=== PATIENT | male | born 1970 | race African-American/Black ===

== ENCOUNTER 2018-10-28 11:24 | Inpatient (IN) ==
[2018-10-28] MEDS ORDERED: ONDANSETRON INJ 2 MG/ML 2 ML VIAL IV STA (11:54)
[2018-10-28] MEDS ORDERED: MoRPHine SULFATE 4 MG/ML 1 ML CARP\\VIAL IV STA (11:54)
--- NOTE | 2018-10-28 11:54 | Emergency Department Note ---
History of Present Illness General Chief complaint: Abdominal Pain Stated complaint: ACUTE CHOLECYSTITIS Time Seen by Provider: 10/28/18 11:48 History of Present Illness Maximum Pain Intensity: 8 This is a 48-year-old male that presents to the emergency department via correctional manager escort from [facility] where the patient is currently incarcerated with complaints of "acute cholecystitis". The patient notes that Sunday night into Sunday morning he developed abrupt onset of right upper quadrant abdominal pain that he notes is an 8/10. There is associated fever and chills. There was an ultrasound performed at the facility which showed possible change in the gallbladder therefore prompting his arrival here today. Patient notes a history of hypertension and on medication for this but no blood thinners. He has been n.p.o. since yesterday. He notes no abdominal history as in the past. He does have a history of abscess drainage on the chest and thyroid. Home Medications Home Medications Medication Instructions Recorded Confirmed Type amlodipine 10 mg PO DAILY 10/28/18 10/28/18 History aspirin [Aspir-81] 81 mg PO DAILY 10/28/18 10/28/18 History Allergies Allergy/AdvReac Type Severity Reaction Status Date / Time No Known Allergies Allergy Unverified 10/28/18 12:47 Past Med/Surg History Medical History History of hypertension Surgical History History of thyroid surgery Social History current occupation: Incarcerated Smoking Status: Former smoker Review of Systems A total of 10 systems reviewed and were otherwise negative Physical Exam Vital Signs Vital Signs - 24 hr 10/28/18 11:38 10/28/18 13:34 Temperature 36.7 C Temperature Source Oral Sepsis Recent Fever Within 48 Hours No Sepsis New/Unexplained Change in Mental Status No Sepsis Action Taken by Nursing No Action Required Pulse Rate 87 Pulse Rate [Finger] 83 Respiratory Rate 16 18 Respiratory Effort / Characteristics Non-Labored Respiratory Depth Normal Blood Pressure 166/112 H Blood Pressure [Right Arm] 154/95 H Blood Pressure Mean 130 Blood Pressure Mean [Right Arm] 114 Pulse Oximetry 98 98 Oxygen Delivery Method Room Air Room Air VITAL SIGNS - Vital signs and nursing notes were reviewed. Hypertensive, otherwise stable. GENERAL -48-year-old male appearing his stated age who is in no acute distress but appears to be in pain. Communicates well with provider and answers questions appropriately. SKIN - Without rashes. No meningeal or petechial rash. HEAD - NC/AT. EYES - PERRL with EOMI bilaterally. Sclera anicteric. Palpebral conjunctiva pink and moist with no injection noted. EARS - No deformities of external structures noted on gross examination bilaterally. NOSE - Midline and without cyanosis. No epistaxis or purulent drainage noted. MOUTH/OROPHARYNX - Without perioral cyanosis. NECK - Neck with FROM. Supple to palpation. No lymphadenopathy noted. No nuchal rigidity. LUNGS - Chest wall symmetric without accessory muscle use, intercostals retractions, or central cyanosis. Normal vesicular breath sounds CTA B/L. No wheezes, rales, or rhonchi appreciated. CARDIAC - RRR with S1/S2. No murmur, rubs, or gallops appreciated. ABDOMEN - Abdominal contour normal without pulsations or visible masses. BS normoactive all four quadrants. There is right upper quadrant abdominal tenderness to palpation. No palpable masses, hepatosplenomegaly, or ascites noted. EXTREMITIES - No clubbing or peripheral cyanosis. No pretibial edema present. +5/5 strength noted in UE/LE bilaterally. NEUROLOGIC - Cranial nerves II through XII grossly intact. PSYCH - A&Ox3 and cooperates fully with examiner. Pt is very pleasant and interacts well with examiner. Course Administered Medications Discontinued Medications Sodium Chloride (Nss 1000ml) 1,000 mls @ 999 mls/hr IV .Q1H1M MONAE Stop: 10/28/18 13:00 Last Infusion: 10/28/18 13:12 Dose: 0 mls/hr Documented by: [id number] Admin: 10/28/18 12:11 Dose: 999 mls/hr Documented by: [id number] Morphine Sulfate (Morphine Sulfate) 4 mg IV NOW STA Stop: 10/28/18 11:55 Last Admin: 10/28/18 12:11 Dose: 4 mg Documented by: [id number] Ondansetron HCl (Zofran) 4 mg IV NOW STA Stop: 10/28/18 11:55 Last Admin: 10/28/18 12:11 Dose: 4 mg Documented by: [id number] Medical Decision Making Laboratory Data Result diagrams: 10/28/18 12:07 10/28/18 12:07 Lab Results 10/28/18 10/28/18 Range/Units 12:07 12:07 WBC 14.33 H (4.8-10.8) K/uL RBC 4.88 (4.7-6.1) M/uL Hgb 15.7 (14.0-18.0) g/dL Hct 43.5 (42-52) % MCV 89.1 (80-100) fL MCH 32.2 (25-34) pg MCHC 36.1 H (32-36) g/dL RDW Std Deviation 44.8 (36.4-46.3) fL RDW Coeff of Maria Isabel 13.7 (11.5-14.5) % Plt Count 201 (130-400) K/uL MPV 9.1 (7.4-10.4) fL Immature Gran % (Auto) 0.3 % Neut % (Auto) 81.1 % Lymph % (Auto) 8.2 % [place] % (Auto) 10.2 % Eos % (Auto) 0.1 % Baso % (Auto) 0.1 % Immature Gran # (Auto) 0.05 H (0.00-0.02) K/uL Neut # (Auto) 11.61 H (1.4-6.5) K/uL Lymph # (Auto) 1.18 L (1.2-3.4) K/uL [place] # (Auto) 1.46 H (0.11-0.59) K/uL Eos # (Auto) 0.02 (0-0.5) K/uL Baso # (Auto) 0.01 (0-0.2) K/uL Sodium 135 L (136-145) mmol/L Potassium 3.9 (3.5-5.1) mmol/L Chloride 99 (98-107) mmol/L Carbon Dioxide 27 (21-32) mmol/L Anion Gap 9.0 (3-11) BUN 11 (7-18) mg/dl Creatinine 1.05 (0.6-1.4) mg/dl Est Cr Clr Drug Dosing 92.7 ml/min Est GFR ( Amer) 96.1 Est GFR (Non-Af Amer) 83.0 BUN/Creatinine Ratio 10.6 (10-20) Glucose 113 H (70-99) mg/dl Calcium 9.4 (8.5-10.1) mg/dl Magnesium 2.5 H (1.8-2.4) mg/dl Total Bilirubin 1.3 H (0.2-1) mg/dl AST 24 (15-37) U/L ALT 32 (12-78) U/L Alkaline Phosphatase 75 (45-117) U/L Total Protein 9.0 H (6.4-8.2) gm/dl Albumin 4.0 (3.4-5.0) gm/dl Globulin 5.0 H (2.5-4.0) gm/dl Albumin/Globulin Ratio 0.8 L (0.9-2) Lipase 53 L (73-393) U/L Imaging Data Radiologist's Impression: US gallbladder CLINICAL HISTORY: 48 years-old Male presenting with RUQ abd pain. TECHNIQUE: Real-time grayscale and limited color Doppler ultrasound imaging of the abdomen limited to the right upper quadrant was performed. COMPARISON: None. FINDINGS: Pancreas: Visualized portions of the pancreatic head and body normal. Liver: Normal echogenicity and echotexture. The liver measures 14.7 cm in maximal sagittal dimension. No sonographic evidence of hepatic mass. Main portal vein patent with normal directional flow. Biliary: No intrahepatic biliary ductal dilatation. Common bile duct measures up to 6 mm in diameter. Gallbladder: Cholelithiasis in the mildly distended gallbladder. Significant gallbladder wall thickening and pericholecystic fluid. Sonographic Sawant's sign positive. Right kidney: Normal in appearance without evidence of hydronephrosis. Ascites: None. Other: None. IMPRESSION: 1. Findings highly suspicious for acute calculus cholecystitis. Surgical consultation is warranted. 2. Top normal extrahepatic bile duct size raises concern for choledocholithiasis though this is not directly visualized on this exam. The report will be called/faxed according to standard departmental protocol. Electronically signed by: Olivier Irwin M.D. 10/28/2018 12:55 PM MDM Narrative Patient was seen and evaluated as above in room B2. Review was performed of nursing notes and vital signs. After obtaining a thorough history and physical examination the above work up was performed. He presents to us today from the facility where he is incarcerated with complaints of right upper quadrant abdominal pain. This is highly suspicious for a gallbladder etiology. IV access was established. Labs were drawn. He was medicated with IV morphine, Zofran and fluids. CBC reveals leukocytosis of 14.33 and no anemia. There is bilirubin elevation at 1.3. LFTs are normal. Magnesium high at 2.5. Urinalysis pending. Lipase does not reveal evidence of pancreatitis. Ultrasound was obtained which reveals suspicion for acute calculus cholecystitis with possible choledocholithiasis. I then talked to the attending physician as well as the on-call surgical team, and spoke with Reji Gamez PA-C. Patient will likely be taken to the operative suite for further evaluation and management. Please refer to further documentation regarding his stay. Case was discussed with the attending physician. GCS: 15 In the evaluation and treatment of this patient, the following differential diagnoses were considered: ASC, IL, Pneumonia, GERD, Cholecystitis, Ascending Cholangitis, Cholydocholithiasis, Bowel Obstruction, PE, Amongst Others. Impression & Plan Acute cholecystitis Discharge Plan Visit Data Chief Complaint: Abdominal Pain Stated Complaint: ACUTE CHOLECYSTITIS ED Provider: Albert Cárdenas ED Midlevel Provider: Troy Dallas Discharge Problem: Acute cholecystitis Patient Disposition: Being Evaluated by Surgeon Condition: Good Forms Stand Alone Forms: Call Back [facility] Pres[facility] Prescriptions: No Action aspirin [Aspir-81] 81 mg Tablet,Delayed Release (Dr/Ec) 81 mg PO DAILY RF: 0 amlodipine 10 mg Tablet 10 mg PO DAILY RF: 0 Referrals Referrals: Magi BARR [Primary Care Provider] -
[2018-10-28] MEDS ORDERED: SODIUM CHLORIDE 0.9% 1000ML 1,000 ML IV SCH (12:00)
[2018-10-28 12:16] LABS: Basophils # (auto) 0.01 K/uL (0-0.2); Basophils % (auto) 0.1 %; Eosinophils # (auto) 0.02 K/uL (0-0.5); Eosinophils % (auto) 0.1 %; Hematocrit (blood only) 43.5 % (42-52); Hemoglobin 15.7 g/dL (14.0-18.0); Immature Granulocytes # (auto) 0.05 K/uL (0.00-0.02); Immature Granulocytes % (auto) 0.3 %; Lymphocytes # (auto) 1.18 K/uL (1.2-3.4); Lymphocytes % (auto) 8.2 %; Mean Corpuscular Hgb Conc 36.1 g/dL (32-36); Mean Corpuscular Volume 89.1 fL (80-100); Mean Platelet Volume 9.1 fL (7.4-10.4); Monocytes # (auto) 1.46 K/uL (0.11-0.59); Monocytes % (auto) 10.2 %; Neutrophils # (auto) 11.61 K/uL (1.4-6.5); Neutrophils % (auto) 81.1 %; Platelet Count 201 K/uL (130-400); RDW Coefficient of Variation 13.7 % (11.5-14.5); RDW Standard Deviation 44.8 fL (36.4-46.3); Red Blood Count 4.88 M/uL (4.7-6.1); White Blood Count 14.33 K/uL (4.8-10.8)
[2018-10-28 12:41] LABS: BUN Creatinine Ratio 10.6 (10-20); Calcium 9.4 mg/dl (8.5-10.1); Creatinine Clr Calc Pharmacy 92.7 ml/min; Est GFR (African American) 96.1; Magnesium 2.5 mg/dl (1.8-2.4); Potassium 3.9 mmol/L (3.5-5.1)
[2018-10-28 12:43] LABS: Albumin Globulin Ratio 0.8 (0.9-2); Bilirubin,Total 1.3 mg/dl (0.2-1)
--- NOTE | 2018-10-28 12:56 | Ultrasound Report ---
US gallbladder CLINICAL HISTORY: 48 years-old Male presenting with RUQ abd pain. TECHNIQUE: Real-time grayscale and limited color Doppler ultrasound imaging of the abdomen limited to the right upper quadrant was performed. COMPARISON: None. FINDINGS: Pancreas: Visualized portions of the pancreatic head and body normal. Liver: Normal echogenicity and echotexture. The liver measures 14.7 cm in maximal sagittal dimension. No sonographic evidence of hepatic mass. Main portal vein patent with normal directional flow. Biliary: No intrahepatic biliary ductal dilatation. Common bile duct measures up to 6 mm in diameter. Gallbladder: Cholelithiasis in the mildly distended gallbladder. Significant gallbladder wall thicken ing and pericholecystic fluid. Sonographic Sawant's sign positive. Right kidney: Normal in appearance without evidence of hydronephrosis. Ascites: None. Other: None. IMPRESSION: 1. Findings highly suspicious for acute calculus cholecystitis. Surgical consultation is warranted. 2. Top normal extrahepatic bile duct size raises concern for choledocholithiasis though this is not directly visualized on this exam. The report will be called/faxed according to standard departmental protocol. Electronically signed by: Olivier Irwin M.D. 10/28/2018 12:55 PM
[2018-10-28] MEDS ORDERED: LACTATED RINGER'S 1,000 ML IV SCH (13:30)
[2018-10-28] MEDS ORDERED: SUCCINYLCHOLINE CHLORIDE 20 MG/ML 10 ML VIAL ONE (13:32)
[2018-10-28] MEDS ORDERED: NEOSTIGMINE METHYLSULFATE 5 MG/5 ML SYR ONE (13:32)
[2018-10-28] MEDS ORDERED: MIDAZOLAM HCL 1 MG/ML 2ML VIAL ONE (13:32)
[2018-10-28] MEDS ORDERED: ONDANSETRON INJ 2 MG/ML 2 ML VIAL ONE (13:32)
[2018-10-28] MEDS ORDERED: DEXAMETHASONE SOD INJ 4 MG/ML VIAL ONE ×2 (13:32→14:58)
[2018-10-28] MEDS ORDERED: ROCURONIUM BROMIDE 10 MG/ML 5 ML VIAL ONE (13:32)
[2018-10-28] MEDS ORDERED: LIDOCAINE HCL 2% 2 ML VIAL/AMP(20MG/ML) INFIL ONE (13:32)
[2018-10-28] MEDS ORDERED: fentaNYL citrate 100 MCG/2 ML VIAL ONE ×3 (13:32→15:20)
[2018-10-28] MEDS ORDERED: GLYCOPYRROLATE 0.2 MG/ML VIAL ONE (13:32)
[2018-10-28] MEDS ORDERED: PROPOFOL IV EMULSION 10 MG/ML 20 ML VIAL IV ONE ×2 (13:32→15:34)
--- NOTE | 2018-10-28 13:39 | History & Physical Report ---
Date of Service October 28, 2018 Assessment & Plan (1) Acute cholecystitis: Will plan for laparoscopic cholecystectomy with cholangiogram given mildly elevated bilirubin and mild intrahepatic bile duct dilation. Procedure was discussed, Dr. Park will be obtaining consent. History of Present Illness Primary Care Provider: CORTNEY Sow 48 y/o male with right sided abdominal pain that began 3 days ago after dinner. Had N/V that has since subsided but pain persists. No previous RUQ pain or food intolerance. No previous abdominal surgery. Nothing to eat since yesterday. Allergies Allergy/AdvReac Type Severity Reaction Status Date / Time No Known Allergies Allergy Unverified 10/28/18 12:47 Home Medications Home Medications Medication Instructions Recorded Confirmed Type amlodipine 10 mg PO DAILY 10/28/18 10/28/18 History aspirin [Aspir-81] 81 mg PO DAILY 10/28/18 10/28/18 History Past Med/Surg History Medical History History of hypertension Surgical History History of thyroid surgery Social History current occupation: Incarcerated Smoking Status: Former smoker Review of Systems Constitutional: + anorexia; no fever and no chills Gastrointestinal: + abdominal pain, + nausea and + vomiting Physical Exam Constitutional: WD/WN, vitals as above no acute distress Eyes: + anicteric sclerae Respiratory: normal respiratory effort, lungs clear to auscultation Cardiovascular: RRR, no murmur, no edema Gastrointestinal (Abdomen): Inspection/Auscultation: abdomen not distended Percussion/Palpation: + abdomen tender (RUQ) and + guarding Results & Data Vital Signs (Past 12 Hours) Vital Signs Temp Pulse Resp BP Pulse Ox 10/28/18 11:38 36.7 C 87 16 166/112 H 98
[2018-10-28 13:52] LABS: Appearance Urine Clear (Clear); Bacteria Urine Automated Negative (Negative); Bilirubin Urine Negative (Negative); Blood Urine 2+ (Negative); Color Urine Orange; Epithelial Cell Urine Auto 20-30 /lpf (0-5); Glucose Urine UA Negative (Negative); Ketones Urine Trace (Negative); Leukocyte Esterase Urine Trace (Negative); Nitrite Urine Negative (Negative); Protein Urine 1+ (Negative); RBC Urine Automated 0-4 /hpf (0-4); Specific Gravity Urine 1.029 (1.000-1.030); Urobilinogen Urine Negative (Negative)
[2018-10-28] MEDS ORDERED: ePHEDrine sulfate 50 MG/ML AMP IV PRN (13:55)
[2018-10-28] MEDS ORDERED: ATROPINE SULFATE 0.1 MG/ML 10ML SYR IV PRN (13:55)
[2018-10-28] MEDS ORDERED: ONDANSETRON INJ 2 MG/ML 2 ML VIAL IV PRN ×2 (13:55→17:10)
[2018-10-28] MEDS ORDERED: fentaNYL citrate 100 MCG/2 ML VIAL IV PRN (13:55)
--- NOTE | 2018-10-28 13:55 | History & Physical Bridge Note ---
Date of Service October 28, 2018 History & Physical Bridge Note I have examined the patient, reviewed the History & Physical and in the interval since the performance of the History & Physical I have noted the following changes of clinical significance: no changes noted exquisite tenderness and rebound RUQ plan agus lyn possible open r and c explained to pt all questions answered
[2018-10-28] MEDS ORDERED: LIDOCAINE/EPINEPHRINE 1% 20 ML VIAL ONE (14:04)
[2018-10-28] MEDS ORDERED: CONRAY 60% 50 ML VIAL ONE (14:04)
--- NOTE | 2018-10-28 14:13 | Anesthesiology Consultation ---
Date of Service October 28, 2018 Assessment & Plan (1) Encounter for pre-operative examination: Chart Review Chart Review: Acceptable Risk for Surgery Consults Requested none ASA ASA2 Proposed Anesthesia Anesthesia Type: General Risk / Benefits Reviewed With: PT / POA / Parent / Guardian, Accepts Plan and Informed Consent Obtained History Surgery Operation Date: 10/28/18 08:10 Proposed Procedures p Laparoscopic Cholecystectomy with Cholangiogram - Fabricio Park MD Height/Weight Height: 5 ft 8 in Weight: 90 kg Allergies Allergy/AdvReac Type Severity Reaction Status Date / Time No Known Allergies Allergy Unverified 10/28/18 12:47 Medications Home Medications Medication Instructions Recorded Confirmed Last Taken amlodipine 10 mg PO DAILY 10/28/18 10/28/18 Unknown aspirin [Aspir-81] 81 mg PO DAILY 10/28/18 10/28/18 Unknown Past Medical History Medical History History of hypertension Exercise / Class Metabolic Activity II 4-5 Yardwork/Stairs/Walk up hill Past Surgical History Surgical History History of thyroid surgery Past Anesthesia History No Hx of Anesthesia Complications and No Family Hx of Anesthesia Complications History of PONV No Hx of PONV and No Hx of Motion Sickness Social History Smoking Status: Former smoker Physical Exam Vital Signs Last Vital Signs Temp 98.1 F 10/28/18 11:38 Pulse 83 10/28/18 13:34 Resp 18 10/28/18 13:34 BP 154/95 H 10/28/18 13:34 Pulse Ox 98 10/28/18 13:34 ENMT Mouth: + poor dentition Thyromental Distance: > or= 3.5 Finger Breadths Mallampati Class: II Neck normal visual inspection Respiratory normal respiratory effort Auscultation: lungs clear to auscultation bilaterally Cardiovascular Rate/Rhythm: regular rate and regular rhythm Testing Laboratory Results 10/28/18 12:07 10/28/18 12:07 Urine Color [place] 10/28/18 13:15 Urine Appearance Clear (Clear) 10/28/18 13:15 Urine pH 5.0 (4.5-7.5) 10/28/18 13:15 Ur Specific [place] 1.029 (1.000-1.030) 10/28/18 13:15 Urine Protein 1+ (Negative) H 10/28/18 13:15 Urine Glucose (UA) Negative (Negative) 10/28/18 13:15 Urine Ketones Trace (Negative) H 10/28/18 13:15 Urine Nitrite Negative (Negative) 10/28/18 13:15 Ur Leukocyte Esterase Trace (Negative) H 10/28/18 13:15 Urine WBC (Auto) 10-30 /hpf (0-5) H 10/28/18 13:15 Urine RBC (Auto) 0-4 /hpf (0-4) 10/28/18 13:15 U Hyaline Cast (Auto) 10-30 /lpf (0-5) H 10/28/18 13:15 U Epithel Cells (Auto) 20-30 /lpf (0-5) H 10/28/18 13:15 Urine Bacteria (Auto) Negative (Negative) 10/28/18 13:15
[2018-10-28] MEDS ORDERED: cefOXitin 2,000 MG/60 ML BAG IV STA (15:00)
[2018-10-28] MEDS ORDERED: ESMOLOL HCL INJ 10 MG/ML 10ML VIAL IV ONE (15:24)
--- NOTE | 2018-10-28 15:32 | Fluoroscopy Report ---
FL cholangiogram OR HISTORY: 48 years-old Male LAP CHARAN cholecystectomy. COMPARISON: Right upper quadrant abdominal ultrasound of same day TECHNIQUE: 2 spot fluoroscopic images of the abdominal right upper quadrant were obtained utilizing 4 .7 seconds fluoroscopy time FINDINGS: Cholecystectomy. Cannulation of the cystic duct with contrast opacification. There are at least 2 sma ll filling defects noted about the mid common bile duct which may reflect choledocholithiasis versus air bubbles. No significant biliary ductal dilation. Normal contrast spilling into the duodenum. No e xtraluminal contrast extravasation identified. Enteric tube noted. IMPRESSION: Fluoroscopic assistance as above. Please see operative report for further details. The above report was generated using voice recognition software. It may contain grammatical, syntax o r spelling errors. Electronically signed by: Matt Lala M.D. 10/28/2018 3:31 PM
--- NOTE | 2018-10-28 15:46 | Post Operative Brief Note ---
Immediate Post Op Note v1 Date of Surgery October 28, 2018 Pre & Post Diagnosis Operation Date: 10/28/18 08:10 Pre-Op Diagnosis: ACUTE CHOLECYSTITIS Post-Op Diagnosis: ACUTE CHOLECYSTITIS Procedure Operation Date: 10/28/18 08:10 Actual Procedures p Laparoscopic Cholecystectomy with Cholangiogram(Not Applicable) - Fabricio Park MD Surgeon Fabricio Park MD Tapper Operator B Franco HALL Estimated Blood Loss 20 Findings Consistent with Post-Op Diagnosis Drains Gera Drain (19 Fr round)
--- NOTE | 2018-10-28 15:58 | Operative Report ---
Post Operative Report Pre & Post Diagnosis Operation Date: 10/28/18 08:10 Pre-Op Diagnosis: ACUTE CHOLECYSTITIS Post-Op Diagnosis: ACUTE CHOLECYSTITIS Procedure Operation Date: 10/28/18 08:10 Actual Procedures p Laparoscopic Cholecystectomy with Cholangiogram(Not Applicable) - Fabricio Park MD The patient was brought into the operating theater supine position general endotracheal anesthesia systemic antibiotics given abdomen prepped with Betadine solution properly draped timeout was had patient identified this point small incision was made supraumbilically sufficient to place a Veress needle followed by CO2 followed by 5 mm trocar point of entry no injury identified she had some preperitoneal insufflation this point I direct visualization looked at the right upper quadrant the omentum appeared to be walling off the gallbladder 11 mm epigastric two 5 mm subcostal ports were placed with preemptive local analgesic 1 Xylocaine with epi the omentum was freed off the acutely inflamed gallbladder we elevated the gallbladder with the lateral grasper and used an aspirating needle to deflate the gallbladder thick bowel was appreciated once a clearly deflated we were able to grasp it really thick-walled gallbladder most of her dissection was done bluntly significant edema was appreciated all the way towards the neck of the gallbladder we identified 2 structures consistent inferiorly with a cystic duct which we clipped proximally at its takeoff small opening the cystic duct was made #4 urethral catheter transverse to the abdominal wall and a 14 Angiocath was positioned in the cystic duct x-ray revealed 2 defects in the common bile duct well-rounded at this point I was not sure if it was air bubbles or stones we placed the patient in reverse Trende lenburg position injected again the filling defects did not move at all a suspicion that these more likely were stones at this point the Cholangiocath was removed cystic duct was secured with 210 mm clips although the cystic duct itself was not most 2 mm or so in diameter the artery some identified doubly clipped proximally once distally and the gallbladder was freed from the liver mostly by blunt dissection due to significant edema some of the posterior peritoneum was cauterized as had minor oozing along the once the gallbladder was removed completely from the liver placed in Endopouch and taken out intact through the epigastric port the gallbladder was falling apart acutely inflamed and I am sure area of necrosis significant different diameter stones were identified cultures the gallbladder were taken subhepatic suprahepatic area was suctioned out copiously there was no active bleeding just the minor oozing from the acutely inflamed residual posterior peritoneum we placed the camera right subcostal port to visualize her initial entry no adhesions the anterior abdominal wall in the umbilical area this point I elected to drain the subhepatic area with a 19 Gera drain which came out lateral port site sutured to skin edge with 2-[address] subhepatically individual trochars were taken under direct visualization the epigastric trocar site was closed with a [id number] of 0 Vicryl the other ones 4-0 Monocryl Steri-Strips applied procedure tolerated well estimated blood loss 20 cc patient taken recovery room in good position addendumB Franco HALL was present throughout the procedure after retraction camera work and wound closure Surgeon Fabricio Park MD Loader Demolder B Franco HALL Estimated Blood Loss 20 Findings Consistent with Post-Op Diagnosis Specimens gallbladder and contents Description of Procedure merda I attest to the content of the Intraoperative Record and any orders documented therein. Any exceptions are noted below.
--- NOTE | 2018-10-28 16:32 | Gastrointestinal Consultation ---
Date of Consultation October 28, 2018 Assessment & Plan (1) Choledocholithiasis: Patient with evident choledocholithiasis on intraoperative cholangiogram. Plan for ERCP, likely Sunday at 130. Continue IV antibiotics We will see tomorrow to ensure there is no evidence of cholangitis. We will check LFTs tomorrow morning. Diet per surgery. History of Present Illness Attending Physician: Fabricio Park MD History of Present Illness This a 48-year-old who presented to the ER with sided shoulder pain epigastric and right upper quadrant abdominal pain. Right upper quadrant ultrasound was obtained and was suspicious for acute acalculous cholecystitis. He was then taken to the operating room today at which time he had an uncomplicated cholecystectomy, and underwent a routine intraoperative cholangiogram. On the intraoperative cholangiogram the common bile duct was evident to small stones and a normal size duct. Bile duct is 1.3, AST ALT and alkaline phosphatase are all normal. I interviewed him in the PACU, and he states that he feels better already, he has no nausea vomiting. Allergies Allergy/AdvReac Type Severity Reaction Status Date / Time No Known Allergies Allergy Unverified 10/28/18 12:47 Home Medications Home Medications Medication Instructions Recorded Confirmed Type amlodipine 10 mg PO DAILY 10/28/18 10/28/18 History aspirin [Aspir-81] 81 mg PO DAILY 10/28/18 10/28/18 History Patient History Medical History History of hypertension Surgical History History of thyroid surgery Social History current occupation: Incarcerated Smoking Status: Former smoker Review of Systems Review of Systems: All systems reviewed & are unremarkable except as noted in HPI & below Physical Exam Constitutional: WD/WN, vitals as above Cardiovascular: RRR, no murmur, no edema Gastrointestinal (Abdomen): normal bowel sounds, soft, nontender, no hepatos plenomegaly Results & Data Vital Signs (Past 12 Hours) Vital Signs Temp Pulse Pulse Pulse Resp BP BP 10/28/18 16:10 36.7 C 102 H 18 154/77 H 10/28/18 14:17 37.5 C 94 H 18 10/28/18 13:34 83 18 10/28/18 11:38 36.7 C 87 16 166/112 H BP Pulse Ox 10/28/18 16:10 100 10/28/18 14:17 156/96 H 95 10/28/18 13:34 154/95 H 98 10/28/18 11:38 98
[2018-10-28] MEDS ORDERED: PIPERACILL/TAZOBAC CONSULT ACTIVE PRN (17:10)
[2018-10-28] MEDS ORDERED: MoRPHine SULFATE 4 MG/ML 1 ML CARP\\VIAL IV PRN (17:10)
[2018-10-28] MEDS ORDERED: OXYCODONE/ACETAMINOPHEN 5mg/325mg TAB PO PRN (17:10)
--- NOTE | 2018-10-28 17:15 | Anesthesiology Progress Note ---
Date of Service October 28, 2018 Anesthesia Post Procedure Vital Signs Vital Signs: Temp Pulse Pulse Pulse Resp BP BP 10/28/18 16:45 89 16 140/76 10/28/18 16:40 95 H 23 128/84 10/28/18 16:35 77 14 129/81 10/28/18 16:30 74 14 119/83 10/28/18 16:25 77 14 137/80 10/28/18 16:23 75 13 136/83 10/28/18 16:21 88 16 159/104 H 10/28/18 16:20 90 16 10/28/18 16:15 82 12 134/102 H 10/28/18 16:12 85 14 10/28/18 16:10 36.7 C 101 H 102 H 17 154/77 H 154/77 H 10/28/18 14:17 37.5 C 94 H 18 10/28/18 13:34 83 18 10/28/18 11:38 36.7 C 87 16 166/112 H BP Pulse Ox 10/28/18 16:45 92 10/28/18 16:40 92 10/28/18 16:35 93 10/28/18 16:30 99 10/28/18 16:25 99 10/28/18 16:23 99 10/28/18 16:21 100 10/28/18 16:20 100 10/28/18 16:15 100 10/28/18 16:12 100 10/28/18 16:10 100 10/28/18 14:17 156/96 H 95 10/28/18 13:34 154/95 H 98 10/28/18 11:38 98 Pain Intensity Abdomen: Pain Intensity: 0 Transfer of Care Handoff Completed per policy Notes Mental Status: alert / awake / arousable and participated in evaluation Patient Amnestic to Procedure: Yes Nausea / Vomiting: adequately controlled Pain: adequately controlled Airway Patency, RR, SpO2: stable & adequate BP & HR: stable & adequate Hydration State: stable & adequate Anesthetic Complications: no major complications apparent
[2018-10-28] MEDS: LACTATED RINGER'S 1,000 ML IV SCH (17:27)
[2018-10-28] MEDS ORDERED: PIPERACILLIN/TAZOBACTAM 3.375 GM in DEXTROSE 5% 100 ML IV ONE (17:45)
[2018-10-28] MEDS: PIPERACILLIN/TAZOBACTAM 3.375 GM in DEXTROSE 5% 100 ML IV SCH (21:36)
[2018-10-29] MEDS: LACTATED RINGER'S 1,000 ML IV SCH ×3 (03:36→22:17)
[2018-10-29] MEDS: PIPERACILLIN/TAZOBACTAM 3.375 GM in DEXTROSE 5% 100 ML IV SCH ×3 (06:07→22:22)
[2018-10-29 07:15] LABS: Basophils # (auto) 0.01 K/uL (0-0.2); Basophils % (auto) 0.1 %; Hematocrit (blood only) 38.6 % (42-52); Hemoglobin 13.4 g/dL (14.0-18.0); Immature Granulocytes # (auto) 0.03 K/uL (0.00-0.02); Immature Granulocytes % (auto) 0.2 %; Lymphocytes # (auto) 0.82 K/uL (1.2-3.4); Lymphocytes % (auto) 6.3 %; Mean Corpuscular Hgb Conc 34.7 g/dL (32-36); Mean Corpuscular Volume 91.5 fL (80-100); Mean Platelet Volume 9.1 fL (7.4-10.4); Monocytes # (auto) 0.76 K/uL (0.11-0.59); Monocytes % (auto) 5.8 %; Neutrophils # (auto) 11.41 K/uL (1.4-6.5); Neutrophils % (auto) 87.6 %; Platelet Count 213 K/uL (130-400); RDW Coefficient of Variation 13.9 % (11.5-14.5); RDW Standard Deviation 47.1 fL (36.4-46.3); Red Blood Count 4.22 M/uL (4.7-6.1); White Blood Count 13.03 K/uL (4.8-10.8)
[2018-10-29 07:38] LABS: Albumin Level 2.8 gm/dl (3.4-5.0); BUN Creatinine Ratio 13.3 (10-20); Bilirubin Direct 0.2 mg/dl (0-0.2); Calcium 8.8 mg/dl (8.5-10.1); Creatinine Clr Calc Pharmacy 93.6 ml/min; Est GFR (African American) 97.3; Est GFR (Non-African American) 83.9; Potassium 4.3 mmol/L (3.5-5.1)
[2018-10-29 07:42] LABS: Total Protein 6.8 gm/dl (6.4-8.2)
--- NOTE | 2018-10-29 07:57 | Anesthesiology Progress Note ---
Date of Service October 29, 2018 Anesthesia Post Procedure Vital Signs Vital Signs: Temp Pulse Pulse Pulse Pulse Resp BP 10/29/18 05:11 36.7 C 75 14 10/28/18 23:21 37.4 C 77 14 10/28/18 20:09 37.0 C 63 18 10/28/18 19:07 37.6 C H 81 20 10/28/18 18:05 37.0 C 83 16 10/28/18 17:33 37.0 C 85 18 10/28/18 17:05 36.7 C 85 16 10/28/18 16:45 89 16 140/76 10/28/18 16:40 36.7 C 95 H 23 128/84 10/28/18 16:35 77 14 129/81 10/28/18 16:30 74 14 119/83 10/28/18 16:25 77 14 137/80 10/28/18 16:23 75 13 136/83 10/28/18 16:21 88 16 159/104 H 10/28/18 16:20 90 16 10/28/18 16:15 82 12 134/102 H 10/28/18 16:12 85 14 10/28/18 16:10 36.7 C 101 H 102 H 17 154/77 H 10/28/18 14:17 37.5 C 94 H 18 10/28/18 13:34 83 18 10/28/18 11:38 36.7 C 87 16 166/112 H BP BP Pulse Ox 10/29/18 05:11 143/79 H 94 10/28/18 23:21 132/82 93 10/28/18 20:09 111/70 94 10/28/18 19:07 142/85 H 95 10/28/18 18:05 120/77 94 10/28/18 17:33 134/86 93 10/28/18 17:05 137/86 93 10/28/18 16:45 92 10/28/18 16:40 92 10/28/18 16:35 93 10/28/18 16:30 99 10/28/18 16:25 99 10/28/18 16:23 99 10/28/18 16:21 100 10/28/18 16:20 100 10/28/18 16:15 100 10/28/18 16:12 100 10/28/18 16:10 154/77 H 100 10/28/18 14:17 156/96 H 95 10/28/18 13:34 154/95 H 98 10/28/18 11:38 98 Pain Intensity Abdomen: Pain Intensity: 0 Notes Mental Status: alert / awake / arousable and participated in evaluation Patient Amnestic to Procedure: Yes Nausea / Vomiting: adequately controlled Pain: adequately controlled Airway Patency, RR, SpO2: stable & adequate BP & HR: stable & adequate Hydration State: stable & adequate Anesthetic Complications: no major complications apparent and Pt Satisfied with anesthetic care
--- NOTE | 2018-10-29 08:18 | Surgery Progress Note ---
Date of Service October 29, 2018 Assessment & Plan (1) Acute cholecystitis: 1 POD await GI evaluation Will plan for laparoscopic cholecystectomy with cholangiogram given mildly elevated bilirubin and mild intrahepatic bile duct dilation. Procedure was discussed, Dr. Park will be obtaining consent. Subjective sleeping, no complaints when awakened Physical Exam Physical Exam: abd soft minimal non bilious kyara drainage Results & Data Vital Signs (Past 12 Hours) Vital Signs Temp Pulse Resp BP Pulse Ox 10/29/18 07:40 36.7 C 75 15 112/67 94 10/29/18 05:11 36.7 C 75 14 143/79 H 94 10/28/18 23:21 37.4 C 77 14 132/82 93
[2018-10-29] MEDS: AMLODIPINE BESYLATE 5 MG TAB PO SCH (08:28)
[2018-10-29] MEDS ORDERED: ASPIRIN 81 MG ECTAB PO SCH (09:00)
--- NOTE | 2018-10-29 11:22 | Gastroenterology Progress Note ---
Date of Service October 29, 2018 Assessment & Plan (1) Choledocholithiasis: Pt is a 48 y/o inmate s/p lap cholecystectomy on 10/28 and found to have choledocholithiasis on intraop cholangiogram. - Diet per surgery but NPO after midnight - Hold ASA after midnight - Continue IV Zosyn - Plan for ERCP tomorrow by Dr. Manzanares Supervising Physician Co-Signing Physician Notes Attending attestation I have seen, examined this patient, and agree with the findings and above by our mid-level provider Ms.Leonie Tirado, with the following additions -Looks well -for ERCP tomorrow Subjective Pt c/o RUQ abd pain over surgical site. Denies any n/v. LFTs and Lipase normal Review of Systems Review of Systems: All systems reviewed & are unremarkable except as noted in HPI & below Physical Exam Constitutional: WD/WN, vitals as above well groomed, cooperative and comfortable Eyes: PERRL, conjunctivae normal, anicteric sclerae ENMT: external ear and nose normal, oropharynx normal Respiratory: normal respiratory effort, lungs clear to auscultation Cardiovascular: RRR, no murmur, no edema Gastrointestinal (Abdomen): Inspection/Auscultation: + hypoactive bowel sounds Percussion/Palpation: + abdomen tender (over surgical sites) and abdomen soft Skin: no rashes, warm and dry no jaundice Neurologic: Motor/Sensory: no asterixis Psychiatric: A+Ox3, euthymic affect Lymphatic: no lymphedema Results & Data Vital Signs (Past 12 Hours) Vital Signs Temp Pulse Resp BP Pulse Ox 10/29/18 07:40 36.7 C 75 15 112/67 94 10/29/18 05:11 36.7 C 75 14 143/79 H 94 10/28/18 23:21 37.4 C 77 14 132/82 93
[2018-10-29] MEDS: OXYCODONE/ACETAMINOPHEN 5mg/325mg TAB PO PRN (15:37)
--- NOTE | 2018-10-29 15:58 | Anesthesiology Consultation ---
Date of Service October 29, 2018 The patient underwent a laparoscopic cholecystectomy on 10/28/18. His anesthesia record has not been scanned into his chart yet. Assessment & Plan (1) Encounter for pre-operative examination: Chart Review Chart Review: Acceptable Risk for Surgery and Patient NOT seen in Pre Admission Testing Consults Requested none History Surgery Operation Date: 10/28/18 08:10 Proposed Procedures p Laparoscopic Cholecystectomy with Cholangiogram - Fabricio Park MD Operation Date: 10/30/18 13:30 Proposed Procedures p Endoscopic Retrograde Cholangiopancreatogram - Dre Manzanares Height/Weight Height: 5 ft 8 in Weight: 90 kg Allergies Allergy/AdvReac Type Severity Reaction Status Date / Time No Known Allergies Allergy Unverified 10/28/18 12:47 Medications Home Medications Medication Instructions Recorded Confirmed Last Taken amlodipine 10 mg PO DAILY 10/28/18 10/28/18 Unknown aspirin [Aspir-81] 81 mg PO DAILY 10/28/18 10/28/18 Unknown acetaminophen-codeine 2 tab PO Q6H PRN #14 tab 10/29/18 Unknown [Tylenol-Codeine #3] Active Medications Generic Name Dose Route Start Last Admin Trade Name Freq PRN Reason Stop Dose Admin Amlodipine Besylate 10 mg 10/29/18 09:00 10/29/18 08:28 Norvasc PO 11/28/18 08:59 10 mg DAILY MONAE Administration Aspirin 81 mg 10/29/18 09:00 10/29/18 08:28 Ecotrin Ectab PO 11/28/18 08:59 81 mg DAILY MONAE Administration Piperacillin Sod/Tazobactam 115 mls @ 28.75 mls/hr 10/28/18 23:00 10/29/18 14:17 Sod 3.375 gm/ Dextrose IV 11/07/18 22:59 28.8 mls/hr Q8H MONAE Administration Protocol Lactated Ringer's 1,000 mls @ 100 mls/hr 10/28/18 17:10 10/29/18 12:44 Lr IV 11/27/18 17:09 100 mls/hr .Q10H MONAE Administration Oxycodone/Acetaminophen 1 tab 10/28/18 17:10 10/29/18 15:37 Percocet 5mg/325mg PO 11/11/18 17:09 1 tab Q4H PRN Administration MODERATE Pain (Scale 4,5,6) NPO Date Last Intake of Fluids: 10/27/18 Time Last Intake of Fluids: 17:00 Date Last Intake of Solids: 10/27/18 Time Last Intake of Solids: 17:00 Past Medical History Medical History History of hypertension Past Surgical History Surgical History History of thyroid surgery Hx laparoscopic cholecystectomy 10/28/18 Social History Smoking Status: Former smoker Physical Exam Vital Signs Last Vital Signs Temp 36.9 C 10/29/18 15:12 Pulse 69 10/29/18 15:12 Resp 18 10/29/18 15:12 BP 135/76 10/29/18 15:12 Pulse Ox 92 10/29/18 15:12 Testing Laboratory Results 10/29/18 06:57 10/29/18 06:57 Urine Color Johnston 10/28/18 13:15 Urine Appearance Clear (Clear) 10/28/18 13:15 Urine pH 5.0 (4.5-7.5) 10/28/18 13:15 Ur Specific [place] 1.029 (1.000-1.030) 10/28/18 13:15 Urine Protein 1+ (Negative) H 10/28/18 13:15 Urine Glucose (UA) Negative (Negative) 10/28/18 13:15 Urine Ketones Trace (Negative) H 10/28/18 13:15 Urine Nitrite Negative (Negative) 10/28/18 13:15 Ur Leukocyte Esterase Trace (Negative) H 10/28/18 13:15 Urine WBC (Auto) 10-30 /hpf (0-5) H 10/28/18 13:15 Urine RBC (Auto) 0-4 /hpf (0-4) 10/28/18 13:15 U Hyaline Cast (Auto) 10-30 /lpf (0-5) H 10/28/18 13:15 U Epithel Cells (Auto) 20-30 /lpf (0-5) H 10/28/18 13:15 Urine Bacteria (Auto) Negative (Negative) 10/28/18 13:15 10/28/18 13:15 Urine Culture - Preliminary Urine,Clean Catch No growth - Less than 1,000 colonies/mL, Final report to follow. 10/28/18 Unknown Gram Stain - Final Gallbladder Aerobic and Anaerobic Culture - Preliminary No growth to date.
[2018-10-30] MEDS: OXYCODONE/ACETAMINOPHEN 5mg/325mg TAB PO PRN (00:02)
[2018-10-30] MEDS: PIPERACILLIN/TAZOBACTAM 3.375 GM in DEXTROSE 5% 100 ML IV SCH ×3 (06:09→22:25)
[2018-10-30 07:01] LABS: Basophils # (auto) 0.01 K/uL (0-0.2); Basophils % (auto) 0.1 %; Eosinophils # (auto) 0.05 K/uL (0-0.5); Eosinophils % (auto) 0.5 %; Hematocrit (blood only) 35.9 % (42-52); Hemoglobin 12.3 g/dL (14.0-18.0); Immature Granulocytes # (auto) 0.02 K/uL (0.00-0.02); Immature Granulocytes % (auto) 0.2 %; Lymphocytes % (auto) 19.3 %; Mean Corpuscular Hgb Conc 34.3 g/dL (32-36); Mean Corpuscular Volume 92.1 fL (80-100); Mean Platelet Volume 8.8 fL (7.4-10.4); Monocytes # (auto) 0.74 K/uL (0.11-0.59); Monocytes % (auto) 7.5 %; Neutrophils # (auto) 7.13 K/uL (1.4-6.5); Neutrophils % (auto) 72.4 %; Platelet Count 209 K/uL (130-400); RDW Standard Deviation 46.7 fL (36.4-46.3); White Blood Count 9.85 K/uL (4.8-10.8)
--- NOTE | 2018-10-30 07:31 | Surgery Progress Note ---
Date of Service October 30, 2018 Assessment & Plan (1) Acute cholecystitis: 10/30/18 POD 2 wanted to send pt back to [facility] yesterday and bring back as op for ERCP today but guards told us too much trouble transporting pt back and forth will leave d/c timing to GI leave drain in for now 1 POD await GI evaluation Will plan for laparoscopic cholecystectomy with cholangiogram given mildly elevated bilirubin and mild intrahepatic bile duct dilation. Procedure was discussed, Dr. Park will be obtaining consent. Subjective 10/30/18 no problems feels fine Pt c/o RUQ abd pain over surgical site. Denies any n/v. LFTs and Lipase normal Review of Systems Review of Systems: no gi symp Physical Exam Physical Exam: abd neg minimal drainage from Gera drain serous Results & Data Vital Signs (Past 12 Hours) Vital Signs Temp Pulse Resp BP Pulse Ox 10/29/18 23:05 36.4 C L 54 L 16 122/72 97
[2018-10-30 07:35] LABS: Albumin Level 2.7 gm/dl (3.4-5.0); BUN Creatinine Ratio 12.2 (10-20); Bilirubin Direct 0.1 mg/dl (0-0.2); Calcium 8.6 mg/dl (8.5-10.1); Creatinine Clr Calc Pharmacy 96.4 ml/min; Est GFR (African American) 100.8; Est GFR (Non-African American) 86.9; Potassium 4.3 mmol/L (3.5-5.1)
[2018-10-30 07:37] LABS: Bilirubin,Total 0.6 mg/dl (0.2-1); Total Protein 6.5 gm/dl (6.4-8.2)
[2018-10-30] MEDS: LACTATED RINGER'S 1,000 ML IV SCH ×2 (07:53→15:41)
[2018-10-30] MEDS: AMLODIPINE BESYLATE 5 MG TAB PO SCH ×2 (07:54→07:58)
--- NOTE | 2018-10-30 10:45 | Gastroenterology Progress Note ---
Date of Service October 30, 2018 Assessment & Plan (1) Choledocholithiasis: Pt is a 48 y/o inmate s/p lap cholecystectomy on 10/28 and found to have choledocholithiasis on intraop cholangiogram. - Keep NPO for ERCP in OR by Dr. Manzanares this afternoon. - IV Zosyn - GI to give further recs after ERCP completed. Supervising Physician Co-Signing Physician Notes I saw and evaluated the patient. We are planning for ERCP today due to a retained stone in the CBD seen on IOC. We have discussed the risks to include bleeding, infection, pancreatitis, and failed biliary cannulation. Subjective Pt had uneventful night, denies any significant abd pain ,n/v, BMs. NPO since midnight for ERCP in OR today Review of Systems Review of Systems: All systems reviewed & are unremarkable except as noted in HPI & below Physical Exam Constitutional: WD/WN, vitals as above well groomed, cooperative and comfortable Eyes: PERRL, conjunctivae normal, anicteric sclerae ENMT: external ear and nose normal, oropharynx normal Respiratory: normal respiratory effort, lungs clear to auscultation Cardiovascular: RRR, no murmur, no edema Gastrointestinal (Abdomen): Inspection/Auscultation: + hypoactive bowel sounds Percussion/Palpation: + abdomen tender (over surgical sites) and abdomen soft Skin: no rashes, warm and dry no jaundice Neurologic: Motor/Sensory: no asterixis Psychiatric: A+Ox3, euthymic affect Lymphatic: no lymphedema Results & Data Vital Signs (Past 12 Hours) Vital Signs Temp Pulse Resp BP Pulse Ox 10/30/18 07:32 36.8 C 53 L 16 124/74 91 10/29/18 23:05 36.4 C L 54 L 16 122/72 97
[2018-10-30] MEDS ORDERED: INDOMETHACIN 50 MG SUPP PR SCH (11:30)
[2018-10-30] MEDS ORDERED: ROCURONIUM BROMIDE 10 MG/ML 5 ML VIAL ONE (12:09)
[2018-10-30] MEDS ORDERED: fentaNYL citrate 100 MCG/2 ML VIAL ONE (12:09)
[2018-10-30] MEDS ORDERED: LARYING-O-JET KIT (LTA) ONE (12:09)
[2018-10-30] MEDS ORDERED: PROPOFOL IV EMULSION 10 MG/ML 20 ML VIAL IV ONE (12:09)
[2018-10-30] MEDS ORDERED: LIDOCAINE HCL 2% 2 ML VIAL/AMP(20MG/ML) INFIL ONE (12:09)
[2018-10-30] MEDS ORDERED: ONDANSETRON INJ 2 MG/ML 2 ML VIAL ONE (12:09)
[2018-10-30] MEDS ORDERED: SUCCINYLCHOLINE CHLORIDE 20 MG/ML 10 ML VIAL ONE (12:09)
[2018-10-30] MEDS ORDERED: DEXAMETHASONE SOD INJ 4 MG/ML VIAL ONE (12:09)
[2018-10-30] MEDS ORDERED: MIDAZOLAM HCL 1 MG/ML 2ML VIAL ONE (12:09)
[2018-10-30] MEDS ORDERED: ATROPINE SULFATE 0.1 MG/ML 10ML SYR IV PRN (13:43)
[2018-10-30] MEDS ORDERED: INDOMETHACIN 50 MG SUPP PR STA (13:43)
[2018-10-30] MEDS ORDERED: ePHEDrine sulfate 50 MG/ML AMP IV PRN (13:43)
[2018-10-30] MEDS ORDERED: ONDANSETRON INJ 2 MG/ML 2 ML VIAL IV PRN (13:43)
--- NOTE | 2018-10-30 14:33 | GI REPORT ---
Patient Name: Je Nicole Procedure Date: 10/30/2018 1:56 PM Date of : 1970 Admit Type: Inpatient Age: 48 Gender: Male Attending MD: Dre Manzanares DO Procedure: ERCP Providers: Dre Manzanares DO Referring MD: Fabricio Archibald Indications: Common bile duct stone(s), Abdominal pain of suspected biliary origin Medicines: General Anesthesia Complications: No immediate complications. Estimated blood loss: Minimal. Estimated Blood Loss: Estimated blood loss was minimal. Procedure: Pre-Anesthesia Assessment: - Prior to the procedure, a History and Physical was performed, and patient medications, allergies and sensitivities were reviewed. The patient's tolerance of previous anesthesia was reviewed. - The risks and benefits of the procedure and the sedation options and risks were discussed with the patient. All questions were answered and informed consent was obtained. - Patient identification and proposed procedure were verified prior to the procedure by the physician, the nurse and the certified flight instructor. The procedure was verified in the procedure room. - Pre-procedure physical examination revealed no contraindications to sedation. - ASA Grade Assessment: III - A patient with severe systemic disease. - After reviewing the risks and benefits, the patient was deemed in satisfactory condition to undergo the procedure. - The anesthesia plan was to use general anesthesia. - Immediately prior to administration of medications, the patient was re-assessed for adequacy to receive sedatives. - The heart rate, respiratory rate, oxygen saturations, blood pressure, adequacy of pulmonary ventilation, and response to care were monitored throughout the procedure. - The physical status of the patient was re-assessed after the procedure. After obtaining informed consent, the scope was passed under direct vision. Throughout the procedure, the patient's blood pressure, pulse, and oxygen saturations were monitored continuously. The Scope was introduced through the mouth, and advanced to the duodenum and used to inject contrast into the bile duct. The ERCP was accomplished without difficulty. The patient tolerated the procedure well. Findings: A privacy manager film of the abdomen was obtained. Surgical clips, consistent with a previous cholecystectomy, were seen in the area of the right upper quadrant of the abdomen. The esophagus was successfully intubated under direct vision without detailed examination of the pharynx, larynx, and associated structures, and upper GI tract. The upper GI tract was grossly normal. The major papilla was normal. The ventral pancreatic duct was inadvertently cannulated with the short-nosed traction sphincterotome and guidewire without any complications. The wire was left in place to aid in biliary cannulation. The bile duct was deeply cannulated with the short-nosed traction sphincterotome and guidewire. Contrast was injected. I personally interpreted the bile duct images. Contrast extended to the hepatic ducts. A cholecystectomy had been performed. The biliary orifice was stenotic. This appeared benign. The lower third of the main bile duct contained filling defect(s) thought to be a stone. Biliary sphincterotomy was made with a monofilament Fusion OMNI sphincterotome using ERBE electrocautery. There was no post-sphincterotomy bleeding. To discover objects, the biliary tree was swept with an 8.5 to 15 mm balloon starting at the bifurcation. One stone was removed. No stones remained. One 5 Fr by 7 cm pancreatic stent with a full external pigtail and no internal flaps was placed 6.5 cm into the ventral pancreatic duct. Clear fluid flowed through the stent. The stent was in good position. Indomethacin 100 mg was given via suppository to decrease the risk of post-ERCP pancreatitis (PEP). The endoscope was withdrawn from the patient. Impression: - Biliary papillary stenosis, benign. - Choledocholithiasis was found. Complete removal was accomplished by biliary sphincterotomy and balloon extraction. - One pancreatic stent was placed into the ventral pancreatic duct. - Indomethacin given to decrease risk of post-ERCP pancreatitis. Recommendation: - Return patient to [facility] for ongoing care. - Clear liquid diet today. - Perform a flat plate abdominal x-ray in 4 - 6 weeks to ensure passage of the pancreatic stent. - Return to my office PRN. Dre Manzanares D.O. Dre Manzanares DO 10/30/2018 2:32:48 PM This report has been signed electronically. Note Initiated On: 10/30/2018 1:56 PM Number of Addenda: 0 I attest to the content of the Intraoperative Record and orders documented therein, exceptions below {[id number]}
--- NOTE | 2018-10-30 14:34 | Post Operative Brief Note ---
Immediate Post Op Note v1 Date of Surgery October 30, 2018 Pre & Post Diagnosis Operation Date: 10/30/18 13:30 Pre-Op Diagnosis: Common Bile Duct Stones Post-Op Diagnosis: common bile duct stones Procedure Operation Date: 10/30/18 13:30 Actual Procedures p Endoscopic Retrograde Cholangiopancreatogram(Not Applicable), biliary sph incterotomy, gallstone extraction, pancreatic stent placement - Dre Manzanares Surgeon Dre Manzanares Smoking Pipe Liner B Franco HALL Estimated Blood Loss 0 Findings Consistent with Post-Op Diagnosis Drains Gera Drain (19 Fr round)
--- NOTE | 2018-10-30 14:43 | Fluoroscopy Report ---
[place] ERCP biliary ductal CLINICAL HISTORY: ERCP IN OR COMPARISON STUDY: Abdominal ultrasound 10/28/2018. FLUOROSCOPY TIME: 1 minute and 4 seconds. FINDINGS: The ampulla was cannulated and contrast was injected into the common bile duct. Prior jeremiah cystectomy. A balloon sweep was performed. 14 fluoroscopic spot images were obtained. IMPRESSION: Fluoroscopy provided for ERCP. Electronically signed by: Fabian Reynoso M.D. 10/30/2018 2:42 PM
--- NOTE | 2018-10-30 15:24 | Anesthesiology Progress Note ---
Date of Service October 30, 2018 Anesthesia Post Procedure Vital Signs Vital Signs: Temp Pulse Pulse Pulse Resp BP Pulse Ox 10/30/18 15:15 36.8 C 67 15 136/80 93 10/30/18 15:05 65 17 134/85 94 10/30/18 14:55 58 L 17 145/87 H 95 10/30/18 14:45 71 17 141/96 H 94 10/30/18 14:36 36.5 C 80 15 142/84 H 96 10/30/18 13:13 35.9 C L 20 L 74 20 138/82 91 10/30/18 07:32 36.8 C 53 L 16 124/74 91 10/29/18 23:05 36.4 C L 54 L 16 122/72 97 Pain Intensity Abdomen: Pain Intensity: 6 Transfer of Care Handoff Completed per policy Notes Mental Status: alert / awake / arousable Patient Amnestic to Procedure: Yes Nausea / Vomiting: adequately controlled Pain: adequately controlled Airway Patency, RR, SpO2: stable & adequate BP & HR: stable & adequate Hydration State: stable & adequate Anesthetic Complications: no major complications apparent
[2018-10-31] MEDS: LACTATED RINGER'S 1,000 ML IV SCH ×2 (01:18→11:08)
[2018-10-31] MEDS: PIPERACILLIN/TAZOBACTAM 3.375 GM in DEXTROSE 5% 100 ML IV SCH (06:09)
--- NOTE | 2018-10-31 06:46 | Surgery Progress Note ---
Date of Service October 31, 2018 Assessment & Plan (1) Acute cholecystitis: 10/31/18 POD 3 had ERCP yesterday for cbc filling defects system was stented will check labs this am if ok remove drain and d/c pt 10/30/18 POD 2 wanted to send pt back to [facility] yesterday and bring back as op for ERCP today but guards told us too much trouble transporting pt back and forth will leave d/c timing to GI leave drain in for now 1 POD await GI evaluation Will plan for laparoscopic cholecystectomy with cholangiogram given mildly elevated bilirubin and mild intrahepatic bile duct dilation. Procedure was discussed, Dr. Park will be obtaining consent. Subjective 10/31/18 feels ok no back pain Pt had uneventful night, denies any significant abd pain ,n/v, BMs. NPO since midnight for ERCP in OR today Physical Exam Physical Exam: no abd finding serous non bilious drainage in Gera drain Results & Data Vital Signs (Past 12 Hours) Vital Signs Temp Pulse Pulse Resp BP Pulse Ox 10/31/18 04:00 36.8 C 58 L 14 118/69 96 10/30/18 23:43 36.8 C 59 L 14 136/78 92 10/30/18 19:27 79 18 141/81 H 10/30/18 18:45 37.0 C 89 18 162/90 H 93
[2018-10-31] MEDS: OXYCODONE/ACETAMINOPHEN 5mg/325mg TAB PO PRN (07:32)
[2018-10-31 07:45] LABS: Hematocrit (blood only) 35.8 % (42-52); Hemoglobin 12.8 g/dL (14.0-18.0); Immature Granulocytes # (auto) 0.03 K/uL (0.00-0.02); Immature Granulocytes % (auto) 0.4 %; Lymphocytes # (auto) 0.96 K/uL (1.2-3.4); Mean Corpuscular Hgb Conc 35.8 g/dL (32-36); Mean Corpuscular Volume 88.2 fL (80-100); Monocytes # (auto) 0.61 K/uL (0.11-0.59); Monocytes % (auto) 7.7 %; Neutrophils # (auto) 6.37 K/uL (1.4-6.5); Neutrophils % (auto) 79.9 %; Platelet Count 223 K/uL (130-400); RDW Coefficient of Variation 13.1 % (11.5-14.5); RDW Standard Deviation 42.4 fL (36.4-46.3); Red Blood Count 4.06 M/uL (4.7-6.1); White Blood Count 7.97 K/uL (4.8-10.8)
[2018-10-31 08:05] LABS: Albumin Level 2.6 gm/dl (3.4-5.0); Bilirubin Direct 0.2 mg/dl (0-0.2); Bilirubin,Total 0.8 mg/dl (0.2-1); Total Protein 6.5 gm/dl (6.4-8.2)
[2018-10-31] MEDS: AMLODIPINE BESYLATE 5 MG TAB PO SCH (08:39)
--- NOTE | 2018-10-31 08:47 | Anesthesiology Progress Note ---
Date of Service October 31, 2018 Anesthesia Post Procedure Vital Signs Vital Signs: Temp Pulse Pulse Pulse Resp BP Pulse Ox 10/31/18 06:49 36.8 C 71 16 119/80 94 10/31/18 04:00 36.8 C 58 L 14 118/69 96 10/30/18 23:43 36.8 C 59 L 14 136/78 92 10/30/18 19:27 79 18 141/81 H 10/30/18 18:45 37.0 C 89 18 162/90 H 93 10/30/18 17:29 37.0 C 62 16 168/108 H 97 10/30/18 16:28 36.7 C 63 16 151/91 H 95 10/30/18 15:58 36.6 C 56 L 16 161/93 H 97 10/30/18 15:15 36.8 C 67 15 136/80 93 10/30/18 15:05 65 17 134/85 94 10/30/18 14:55 58 L 17 145/87 H 95 10/30/18 14:45 71 17 141/96 H 94 10/30/18 14:36 36.5 C 80 15 142/84 H 96 10/30/18 13:13 35.9 C L 20 L 74 20 138/82 91 Pain Intensity Abdomen: Pain Intensity: 3 Notes Mental Status: alert / awake / arousable and participated in evaluation Nausea / Vomiting: adequately controlled Pain: adequately controlled Airway Patency, RR, SpO2: stable & adequate BP & HR: stable & adequate Hydration State: stable & adequate
--- NOTE | 2018-10-31 11:55 | Gastroenterology Progress Note ---
Date of Service October 31, 2018 Assessment & Plan (1) Choledocholithiasis: Pt is a 48 y/o inmate s/p lap cholecystectomy on 10/28 and found to have choledocholithiasis on intraop cholangiogram. ERCP performed on 10/30 w choledocholithiasis removal, biliary sphincterectomy and pancreatic stent ghanshyam cement. He is doing well. - No contraindication for DC from GI standpoint - KUB in 4-6 week's time to ensure pancreatic stent had passed. - Advanced to low fat diet Supervising Physician Co-Signing Physician Notes We saw and evaluated the patient, he is to be discharged this afternoon. I would suggest a KUB in about 4 weeks to ensure that the pancreatic stent passage. The pancreatic stent is still in place we would then make arrangements for upper endoscopy to remove it. Subjective Pt doing well post ERCP, denies abd pain, n/v, wants to eat more solid foods. Labs reviewed - no signs of anemia, LFTs normal Review of Systems Review of Systems: All systems reviewed & are unremarkable except as noted in HPI & below Physical Exam Constitutional: WD/WN, vitals as above well groomed, cooperative and comfortable Eyes: PERRL, conjunctivae normal, anicteric sclerae ENMT: external ear and nose normal, oropharynx normal Respiratory: normal respiratory effort, lungs clear to auscultation Cardiovascular: RRR, no murmur, no edema Gastrointestinal (Abdomen): Inspection/Auscultation: + hypoactive bowel sounds Percussion/Palpation: abdomen soft; abdomen nontender (over surgical sites) DANIELE drain to RUQ area emptied Skin: no rashes, warm and dry no jaundice Neurologic: Motor/Sensory: no asterixis Psychiatric: A+Ox3, euthymic affect Lymphatic: no lymphedema Results & Data Vital Signs (Past 12 Hours) Vital Signs Temp Pulse Resp BP Pulse Ox 10/31/18 06:49 36.8 C 71 16 119/80 94 10/31/18 04:00 36.8 C 58 L 14 118/69 96
--- NOTE | 2018-11-05 09:12 | Discharge Summary ---
Date of Service November 05, 2018 Admission HPI Per Admitting Provider 48 y/o male with right sided abdominal pain that began 3 days ago after dinner. Had N/V that has since subsided but pain persists. No previous RUQ pain or food intolerance. No previous abdominal surgery. Nothing to eat since yesterday. Principal Diagnosis 1. Cholelithiasis, acute cholecystitis, choledocholithiasis Discharge Exam Gastrointestinal (Abdomen) Inspection/Auscultation: + abdominal surgical incision (clean, dry) Percussion/Palpation: abdomen soft Discharge Data Allergies Allergy/AdvReac Type Severity Reaction Status Date / Time No Known Allergies Allergy Verified 10/30/18 13:11 Consultations 10/28/18 17:10 Consult Gastroenterology Routine Procedures Performed Operation Date: 10/28/18 08:10 Actual Procedures p Laparoscopic Cholecystectomy with Cholangiogram(Not Applicable) - Fabricio Park MD Operation Date: 10/30/18 13:30 Actual Procedures p Endoscopic Retrograde Cholangiopancreatogram(Not Applicable) - Dre Manzanares Ordered Studies 10/28/18 [place] cholangiogram OR Routine 10/28/18 11:57 US gallbladder Stat 10/30/18 13:30 [place] ERCP biliary ductal Routine Hospital Course (1) Acute cholecystitis: 48 y/o male inmate brought to the ED for abdominal pain. Ultrasound showed acute cholecystitis and he had mild bilirubin elevation. He was taken to the operating room that afternoon for laparoscopic cholecystectomy and IOC. Cholangiogram showed common duct stones. He was admitted to the surgical service and GI consulted for ERCP. He was taken for ERCP 2 days later and had stone removal and pancreatic stent placement. The next day he was tolerating diet and had no signs of pancreatitis. He was stable for discharge. Gera drain was removed prior to discharge. Total Time Total Time Spent Total Time Spent (In Minutes): 15 Discharge Plan Discharge Items Patient Disposition: [facility] Reason For Visit: ACUTE CHOLECYSTITIS Discharge Diagnosis: laparoscopic cholecystectomy ERCP for common bile duct stones Condition: Good Discharge Goals: Decrease discomfort Activity: Per 'Additional Instructions' section Lifting: No more than 10 pounds Bathing: No limitations Bathing Comment: ok to shower Exercise/Sports: Wait until after follow-up appointment Non-emergency contact: Surgeon Call non-emergency contact if: you have any medication questions, your pain is not controlled, you have a fever, your temperature is above 101.5 and your wound has increased redness Follow-up/Referrals: Fabricio Park MD [Surgeon] - (In approx 1 week, call to schedule) Dre Manzanares [Physician] - (KUB should be done in 4-6 weeks to check for passage of pancreatic stent) Magi BARR [Primary Care Provider] - Diet: Low Fat Addtl Provider Instructions: Prescriptions: New acetaminophen-codeine [Tylenol-Codeine #3] 300-30 mg tablet 2 tab PO Q6H PRN (Reason: pain) Qty: 14 RF: 0 Continued aspirin [Aspir-81] 81 mg Tablet,Delayed Release (Dr/Ec) 81 mg PO DAILY RF: 0 amlodipine 10 mg Tablet 10 mg PO DAILY RF: 0 Stand-Alone Forms: Call Back Authorization, [facility]/Other Patient Handouts: Pain Management, ED Diet Low Fat Discharge Orders: Discharge Order (Routine); Ordered 10/31/18 Ordered By: Reji Gamez Admission Data Admit Date/Time: 10/28/18 16:18 Attending Provider: Fabricio Park Admit Provider: Fabricio Park Primary Care Provider: Magi BARR Other Providers: Dre Manzanares Service: Surgical Services Other Interventions: Discharge Summary Assessment (RN) Last Done: 10/31/18 13:50 DC Date/Time DO NOT enter until pt leaves facility: 10/31/18 16:15
== END 2018-10-31 16:15 | DRG 419 ==
LOC: ED 11:24 → OR 14:00 → 3W 16:18
DX: Z87.891 Personal history of nicotine dependence; I10 Essential (primary) hypertension; Z79.82 Long term (current) use of aspirin; K80.42 Calculus of bile duct with acute cholecystitis without obstruction